=== PATIENT | male | born 1970 | race Caucasian/White ===

== ENCOUNTER 2016-05-23 13:55 | Emergency (ER) | payer OTHER ==
[~2016-05-23 13:55] MED LIST: FLEXERIL10 MG PO; IBUPROFEN800 MG PO; TYLOX 5/500 CAP1 CAP PO; ZITHROMAX PO
== END 2016-05-23 14:00 | disposition home or self-care (01) ==
LOC: CFTX 13:55
DX: S91.331A Puncture wound without foreign body, right foot, initial encounter (principal); I10 Essential (primary) hypertension; F17.210 Nicotine dependence, cigarettes, uncomplicated; W22.8XXA Striking against or struck by other objects, initial encounter; Y92.009 Unspecified place in unspecified non-institutional (private) residence as the place of occurrence of the external cause
CPT/HCPCS: 99283